=== PATIENT | female | born 1945 | race Caucasian/White ===

== ENCOUNTER 2018-06-29 23:38 | Emergency (ER) | payer OTHER ==
[~2018-06-29] VITALS: Ht 152.4 cm; Wt 68.0 kg
[2018-06-29] MEDS ORDERED: ZANTAC 7575 MG (23:54)
[2018-06-30] MEDS ORDERED: VOLTAREN-XR100 MG PO (03:53)
== END 2018-06-30 03:59 ==
LOC: ER 23:38
DX: M25.551 Pain in right hip (principal); M71.561 Other bursitis, not elsewhere classified, right knee

== ENCOUNTER 2020-04-29 08:49 | Outpatient (CLI) | payer OTHER ==
[~2020-04-29 08:49] MED LIST: VOLTAREN-XR100 MG PO; ZANTAC 7575 MG
== END 2020-04-29 10:03 | disposition home or self-care (01) ==
LOC: SONOGRAMA 08:49
PROVIDERS: ATTEND Pathology Anatomic Pathology & Clinical Pathology
DX: E04.1 Nontoxic single thyroid nodule (principal)

== ENCOUNTER 2021-10-22 07:25 | Outpatient (CLI) | payer OTHER | END 2021-10-22 07:51 | disposition home or self-care (01) | LOC: RX STUDY 07:25 | PROVIDERS: ATTEND Internal Medicine Gastroenterology | DX: R10.13 Epigastric pain (principal); R13.10 Dysphagia, unspecified; K44.9 Diaphragmatic hernia without obstruction or gangrene ==

== ENCOUNTER 2021-10-29 11:44 | Outpatient (CLI) | payer OTHER | END 2021-10-29 11:47 | disposition home or self-care (01) | LOC: LAB 11:44 | DX: R91.8 Other nonspecific abnormal finding of lung field (principal) ==

== ENCOUNTER 2021-11-07 10:13 | Outpatient (CLI) | payer OTHER | END 2021-11-07 10:19 | disposition home or self-care (01) | LOC: TOM 10:13 | PROVIDERS: ATTEND Internal Medicine Cardiovascular Disease | DX: R91.8 Other nonspecific abnormal finding of lung field (principal) | CPT/HCPCS: 71270; Q9965 ==

== ENCOUNTER 2022-06-22 23:06 | Emergency (ER) | payer OTHER ==
[~2022-06-22] VITALS: Ht 152.4 cm; Wt 68.0 kg
[2022-06-22] MEDS ORDERED: ATORVASTATIN CA20 MG PO (23:26)
[2022-06-22] MEDS ORDERED: LOSARTAN-HCTZ1 EACH PO (23:26)
== END 2022-06-23 05:53 | disposition home or self-care (01) ==
LOC: ER 23:06
DX: R42 Dizziness and giddiness (principal)